=== PATIENT | female | born 1970 | race Hispanic/Latino ===

== ENCOUNTER → 2024-04-09 | Outpatient (CLI) | payer OTHER ==
[2024-04-09 16:18] LABS: BASOPHILS # (AUTO) 0.04 K/uL (0.00-0.20); BASOPHILS % (AUTO) 0.8 % (0.0-5.0); EOSINOPHILS # (AUTO) 0.17 K/uL (0.00-0.70); EOSINOPHILS % (AUTO) 3.4 % (0.0-8.0); HEMATOCRIT 39.2 % (36-48); IMMATURE GRANULOCYTE ABSOLUTE 0.01 K/uL (0-1); LYMPHOCYTES # (AUTO) 1.8 K/uL (1.0-4.8); LYMPHOCYTES % (AUTO) 35.5 % (21.0-51.0); MEAN CORPUSCULAR HEMOGLOBIN 29.5 pg (27.0-33.0); MEAN CORPUSCULAR HGB CONC 32.4 g/dL (32.0-36.0); MONOCYTES # (AUTO) 0.4 K/uL (0.1-1.0); MONOCYTES % (AUTO) 8.4 % (3.0-13.0); NEUTROPHILS # (AUTO) 2.6 K/uL (1.8-7.7); NEUTROPHILS % (AUTO) 51.7 % (40.0-77.0); PLATELET COUNT (AUTO) 197 K/uL (130-400); RED BLOOD CELL COUNT(AUTO) 4.31 MIL/uL (4.00-5.50); RED CELL DISTRIBUTION WIDTH 12.6 % (11.0-15.5)
[2024-04-09 16:49] LABS: CREATININE 0.8 mg/dL (0.5-1.0); POTASSIUM 3.6 mmol/L (3.5-5.1); THYROID STIMULATING HORMONE 0.61 uIU/mL (0.36-3.74)
== END | disposition home or self-care (01) ==
LOC: LAB 13:19
PROVIDERS: ATTEND Internal Medicine Cardiovascular Disease
DX: I87.2 Venous insufficiency (chronic) (peripheral) (principal); I73.9 Peripheral vascular disease, unspecified
CPT/HCPCS: 36415; 80048; 80061; 84443; 85025

== ENCOUNTER → 2024-05-19 | Outpatient (CLI) | payer OTHER | END | disposition home or self-care (01) | LOC: SHCH 10:08 | PROVIDERS: ATTEND Internal Medicine Cardiovascular Disease | DX: I87.2 Venous insufficiency (chronic) (peripheral) (principal); I73.9 Peripheral vascular disease, unspecified | CPT/HCPCS: 93925; 93970 ==

== ENCOUNTER 2025-01-20 12:37 | Emergency (ER) | payer OTHER ==
[~2025-01-20] VITALS: Ht 167.6 cm; Wt 81.6 kg
[2025-01-20 13:28] LABS: BASOPHILS # (AUTO) 0.03 K/uL (0.00-0.20); BASOPHILS % (AUTO) 0.4 % (0.0-5.0); EOSINOPHILS # (AUTO) 0.07 K/uL (0.00-0.70); EOSINOPHILS % (AUTO) 0.8 % (0.0-8.0); HEMATOCRIT 37.1 % (36-48); IMMATURE GRANULOCYTE ABSOLUTE 0.03 K/uL (0-1); LYMPHOCYTES # (AUTO) 2.1 K/uL (1.0-4.8); LYMPHOCYTES % (AUTO) 24.8 % (21.0-51.0); MEAN CORPUSCULAR HEMOGLOBIN 29.4 pg (27.0-33.0); MEAN CORPUSCULAR HGB CONC 32.9 g/dL (32.0-36.0); MEAN CORPUSCULAR VOLUME 89.4 fL (79-99); MONOCYTES # (AUTO) 0.5 K/uL (0.1-1.0); NEUTROPHILS # (AUTO) 5.8 K/uL (1.8-7.7); NEUTROPHILS % (AUTO) 67.6 % (40.0-77.0); PLATELET COUNT (AUTO) 190 K/uL (130-400); RED BLOOD CELL COUNT(AUTO) 4.15 MIL/uL (4.00-5.50); RED CELL DISTRIBUTION WIDTH 12.5 % (11.0-15.5); WHITE BLOOD COUNT (AUTO) 8.6 K/uL (4.8-10.8)
[2025-01-20 13:39] LABS: CREATININE 0.8 mg/dL (0.5-1.0); POTASSIUM 3.3 mmol/L (3.5-5.1)
--- NOTE | 2025-01-20 13:47 | HMCIMG ---
ULTRASOUND SOFT TISSUE LOWER EXTREMITY LEFT INDICATION: Left inguinal pain and swelling. COMPARISON: None TECHNIQUE: Multiplanar sonographic images of the left groin were obtained earlier in real-time using grayscale and color Doppler technique, and subsequently made available for review. FINDINGS/IMPRESSION: 5.4 x 3.6 x 4.8 cm and 4.2 x 1.2 x 5.8 cm nonvascular complex fluid collections demonstrated along the left groin suggesting residual hematomas.
--- NOTE | 2025-01-20 14:00 | ERN ---
General Chief Complaint: Other Problems Stated Complaint: POSSIBLE INTERNAL BLEEDING Time Seen by MD: 12:39 Source: patient History of Present Illness Initial Comments Patient is a 54-year-old female coming in to be evaluated for left inguinal pain. Patient states that she had a recent catheterization but is having some discomfort and noticed some mild swelling in the inguinal area. Allergies: Coded Allergies: No Known Drug Allergies (Unverified Allergy, Unknown, 01/20/25) Past Medical History Past Medical History: Heart Disease Medical History Other: THYROID PROBLEM Past Surgical History: Other Surgical History Other: STENT ROS Dictation CONSTITUTIONAL: No chills, no fever, no weakness, no diaphoresis, no malaise. HEAD/FACE: No signs of trauma. EENT: No eye pain, no blurred vision, no tearing, no double vision, no ear pain, no ear discharge, no nose pain, no nasal congestion, no throat pain, no throat swelling, no mouth pain. RESPIRATORY: No cough, no orthopnea, no SOB, no stridor, no wheezing. CARDIOVASCULAR: No chest pain, no edema, no palpitations, no syncope. GASTROINTESTINAL/ABDOMINAL: No abdominal pain, no constipation, no diarrhea, no nausea, no vomiting. GENITOURINARY: No abnormal discharge, no dysuria, no frequent urination, no hematuria. No complaints of pain in the genitals. MUSCULOSKELETAL: No back pain, no gout, no joint pain, no joint swelling, no muscle pain, no muscle stiffness, no neck pain. INTEGUMENTARY: No change in color, no change in hair/nails, no dryness, no lesion, no lumps, no rash. NEUROLOGICAL/PSYCH: No anxiety, not depressed, no emotional problem, no headache, no numbness, no pre-existing deficit, no history of seizures, no tremors, no weakness. HEMATOLOGIC/LYMPHATIC: Not anemic, no history of blood clots, no apparent bleeding, no bruising, glands not swollen. All Systems Negative, Except as Noted. Physical Exam Physical Exam Dictation VITAL SIGNS: Reviewed. GENERAL APPEARANCE: Alert, oriented x3, no acute distress, obese. HEAD AND FACE: Non-traumatic. EYES: PERRL, pink conjunctivas, eyelid no trauma, anterior chamber clear. EARS: Pinnas intact and no signs of trauma or erythema. Ear canals clear and no discharge. TMs no erythema. NOSE: No discharge, no bleeding. OROPHARYNX: Mouth normal, teeth no caries, tongue pink. Pharynx clear, no erythema. Tonsils no exudates, no abscesses noted. Mucous membrane moist. NECK: Supple, non-tender, no thyromegaly, no masses, no JVD, no bruits. BREAST: Deferred. CHEST: No tenderness, no crepitus, no paradoxical movement, no retractions. LUNGS: Clear, well-ventilated, symmetric, no rales, no wheezing, no rhonchi, no stridor, good breath sounds bilaterally. HEART: Regular rate, regular rhythm, no murmur, no gallops. VASCULAR: No peripheral edema. ABDOMEN: Soft, positive bowel sounds, nondistended, no guarding, nontender, no rebound, no masses no hepatomegaly, no splenomegaly, no Marti's sign, no hernias. RECTAL: Deferred. GENITAL: Deferred. NEUROLOGICAL: Normal speech, gross motor function intact, gross sensory function intact. MUSCULOSKELETAL: Neck nontender, full range of motion, back nontender, full range of motion. EXTREMITIES: Nontender, full range of motion. SKIN: Color pink, dry, no turgor, no rash, no lacerations, no abrasions, no contusions. LYMPHATICS: Deferred. Results Laboratory and Microbiology Lab and Micro Result Laboratory Tests Test 01/20/25 13:01 White Blood Count 8.6 K/uL (4.8-10.8) Red Blood Count 4.15 MIL/uL (4.00-5.50) Hemoglobin 12.2 g/dL (12.0-16.0) Hematocrit 37.1 % (36-48) Mean Corpuscular Volume 89.4 fL (79-99) Mean Corpuscular Hemoglobin 29.4 pg (27.0-33.0) Mean Corpuscular Hemoglobin Concent 32.9 g/dL (32.0-36.0) Red Cell Distribution Width 12.5 % (11.0-15.5) Platelet Count 190 K/uL (130-400) Mean Platelet Volume 10.6 fL (7.5-10.5) H Immature Granulocyte % (Auto) 0.4 % (0-1) Neutrophils (%) (Auto) 67.6 % (40.0-77.0) Lymphocytes (%) (Auto) 24.8 % (21.0-51.0) Monocytes (%) (Auto) 6.0 % (3.0-13.0) Eosinophils (%) (Auto) 0.8 % (0.0-8.0) Basophils (%) (Auto) 0.4 % (0.0-5.0) Neutrophils # (Auto) 5.8 K/uL (1.8-7.7) Lymphocytes # (Auto) 2.1 K/uL (1.0-4.8) Monocytes # (Auto) 0.5 K/uL (0.1-1.0) Eosinophils # (Auto) 0.07 K/uL (0.00-0.70) Basophils # (Auto) 0.03 K/uL (0.00-0.20) Absolute Immature Granulocyte (auto 0.03 K/uL (0-1) Nucleated Red Blood Cells 0.0 % (0.0-0.19) Sodium Level 139 mmol/L (136-145) Potassium Level 3.3 mmol/L (3.5-5.1) L Chloride Level 104 mmol/L (101-111) Carbon Dioxide Level 30 mmol/L (21-32) Blood Urea Nitrogen 13 mg/dL (7-18) Creatinine 0.8 mg/dL (0.5-1.0) Glomerular Filtration Rate Calc 86 mL/min (>90) Random Glucose 90 mg/dL (70-105) Total Calcium 8.6 mg/dL (8.5-10.1) Labs Reviewed?: Yes EKG/XRAY/US/CT/MRI Ultrasound Comment [place] [id number] [address] IMAGING REPORT Signed PATIENT: KAREY SCHREIBER MR#: [id number] : 1970 SEX: F AGE: 54 LOCATION: [facility] ORDER 48 STATUS: REG ER REPORT#: [id number] SERVICE [id number] REASON: left ingiunal pain/ swelling ORDERING PHYSICIAN: CHAPARRITA NAZARIO MD PROCEDURE: SOFT LOW E - US SOFT TISSUE LOWER EXTREMITY ULTRASOUND SOFT TISSUE LOWER EXTREMITY LEFT INDICATION: Left inguinal pain and swelling. COMPARISON: None TECHNIQUE: Multiplanar sonographic images of the left groin were obtained earlier in real-time using grayscale and color Doppler technique, and subsequently made available for review. FINDINGS/IMPRESSION: 5.4 x 3.6 x 4.8 cm and 4.2 x 1.2 x 5.8 cm nonvascular complex fluid collections demonstrated along the left groin suggesting residual hematomas. DICTATED BY: BONILLA RESENDIZ MD DATE: 01/20/25 1343 ELECTRONICALLY SIGNED BY: OBNILLA RESENDIZ MD DATE: 01/20/25 1347 MDM MDM: Differential diagnosis: Wound evaluation, surgical evaluation, status post catheterization, Patient is a 54-year-old female coming in to be evaluated for left inguinal discomfort. Per patient she was recently seen by Dr. Cardenas for a procedure that was performed. Ultrasound was performed findings were discussed with Dr. Cardenas operations intern and his recommendation is patient is to be discharged and follow up accordingly. ED Course Orders Procedure Category Date Status Time Us Soft Tissue Lower US 01/20/25 Resulted Extremity 12:48 Cbc With Differential LAB 01/20/25 Complete 12:51 Basic Metabolic Panel LAB 01/20/25 Complete 12:51 Morphine 2mg Syg PHA 01/20/25 Complete (Morphine 2mg Syg) 15:00 Ondansetron 4mg Inj PHA 01/20/25 Complete (Zofran 4mg Inj) 15:00 Current Medications Medications (Trade) Dose Ordered Sig/Minna Route PRN Reason Start Time Stop Time Status Last Admin Dose Admin Morphine Sulfate (morPHINE 2MG SYG) 2 mg ONCE ONCE IVP 01/20/25 15:00 01/20/25 15:01 DC 01/20/25 14:51 Ondansetron HCl (zoFRAN 4MG INJ) 4 mg ONCE ONCE IVP 01/20/25 15:00 01/20/25 15:01 DC 01/20/25 14:51 Vital Signs Date Time Temp Pulse Resp B/P (MAP) Pulse Ox O2 Delivery O2 Flow Rate FiO2 01/20/25 14:03 93 18 152/93 98 Room Air* 0 21 01/20/25 12:46 98.8 77 16 132/70 100 Room Air DX & DISP Disposition: Discharge Departure Impression: Primary Impression: Visit for wound check Condition: Stable Additional Instructions: FOLLOW-UP WITH PRIMARY CARE PROVIDER IN 1 TO 2 DAYS. TAKE MEDICATIONS DIRECTED HERE IN THE EMERGENCY ROOM. OKAY TO CONTINUE HOME MEDICATIONS UNLESS OTHERWISE DISCUSSED DURING YOUR VISIT IN THE EMERGENCY ROOM TODAY. RETURN TO YOUR NEAREST EMERGENCY ROOM IF SYMPTOMS WORSEN OR IF THERE IS NO IMPROVEMENT. CALL 911 IF YOU NEED IMMEDIATE ASSISTANCE. TAKE TYLENOL [id number] NEEDED AND IF NO CONTRAINDICATIONS ARE PRESENT. INCREASE ORAL HYDRATION. A WOUND CULTURE OR URINE CULTURE WAS ORDERED HERE IN THE EMERGENCY ROOM DEPARTMENT PLEASE FOLLOW-UP WITH PRIMARY CARE PROVIDER AND ADVISE THEM TO GET REPEAT PORTS FROM OUR FACILITY. IF YOU HAD ANY ZORAIDA WRAP/SPLINTS THAT WERE APPLIED HERE, PLEASE DO NOT REMOVE THEM UNTIL YOU SEE YOUR PRIMARY CARE OR SPECIALTY. Referrals: Referrals: BECKA HYDE MD (PCP) Time of Disposition: 15:04 CHAPARRITA NAZARIO MD Jan 20, 2025 14:00
[2025-01-20] MEDS: ondanSETRON 4MG INJ IVP ONE (14:51)
[2025-01-20] MEDS: morPHINE 2 MG SYG IVP ONE (14:51)
--- NOTE | 2025-01-20 15:40 | NUR ---
PT STATES SHE WAS SPOKEN TO BY HEART CLINIC MANAGER MEDIA AND WAS ADVISED THAT DR. GOODMAN WILL BE COMING TO EVALUATE HER GROIN BEFORE SHE CAN GO HOME. DR. NAZARIO WAS ADVISED THAT PT WAS TOLD TO WAIT IN ED FOR DR. GOODMAN BEFORE DISCHARGE.
[2025-01-20 19:00] VITALS: BP 119/66; PULSE 80; RESP 18; TEMP 98.2; O2SAT 100
== END 2025-01-20 19:15 | disposition home or self-care (01) ==
LOC: EDH 12:37
DX: Z48.00 Encounter for change or removal of nonsurgical wound dressing (principal)
CPT/HCPCS: 99285; 96374; 96375; 80048; 85025; 36415; 76882; J2270; J2405

== ENCOUNTER → 2025-02-06 | Outpatient (CLI) | payer OTHER ==
[2025-02-06 13:24] LABS: BASOPHILS # (AUTO) 0.05 K/uL (0.00-0.20); BASOPHILS % (AUTO) 0.9 % (0.0-5.0); EOSINOPHILS # (AUTO) 0.18 K/uL (0.00-0.70); EOSINOPHILS % (AUTO) 3.3 % (0.0-8.0); HEMATOCRIT 37.5 % (36-48); IMMATURE GRANULOCYTE ABSOLUTE 0.02 K/uL (0-1); LYMPHOCYTES # (AUTO) 1.7 K/uL (1.0-4.8); LYMPHOCYTES % (AUTO) 31.5 % (21.0-51.0); MEAN CORPUSCULAR HEMOGLOBIN 30.3 pg (27.0-33.0); MEAN CORPUSCULAR HGB CONC 32.5 g/dL (32.0-36.0); MEAN CORPUSCULAR VOLUME 93.3 fL (79-99); MONOCYTES # (AUTO) 0.5 K/uL (0.1-1.0); MONOCYTES % (AUTO) 8.5 % (3.0-13.0); NEUTROPHILS % (AUTO) 55.4 % (40.0-77.0); PLATELET COUNT (AUTO) 240 K/uL (130-400); RED BLOOD CELL COUNT(AUTO) 4.02 MIL/uL (4.00-5.50); RED CELL DISTRIBUTION WIDTH 13.7 % (11.0-15.5); WHITE BLOOD COUNT (AUTO) 5.4 K/uL (4.8-10.8)
--- NOTE | 2025-02-06 14:38 | HMCIMG ---
ULTRASOUND SOFT TISSUE GROIN INDICATION: Left groin pain COMPARISON: None TECHNIQUE: Multiplanar sonographic images of the left groin were obtained earlier in real-time using grayscale and color Doppler technique, and subsequently made available for review. FINDINGS/IMPRESSION: 8.7 x 2.5 x 5.5 cm and smaller 6.3 x 1.7 x 2.3 cm left groin hematomas, increased in size when compared to the 01/20/2025 study, when they measured 5.4 x 3.6 x 4.8 cm and 4.2 x 1.2 x 5.8 cm, respectively.
== END | disposition home or self-care (01) ==
LOC: RAH 12:53
PROVIDERS: ATTEND Internal Medicine Cardiovascular Disease
DX: M79.81 Nontraumatic hematoma of soft tissue (principal); R10.30 Lower abdominal pain, unspecified
CPT/HCPCS: 36415; 76882; 85025

== ENCOUNTER → 2025-09-25 | Outpatient (CLI) | payer OTHER ==
[~2025-09-25] MED LIST: GADOTERATE MEGLUMINE 10 MMOL/20 ML VIAL IV ONE
--- NOTE | 2025-09-26 17:29 | HMCIMG ---
EXAM: MR Abdomen without and with IV contrast. CLINICAL HISTORY: Abnormal findings on diagnostic imaging of liver and biliary tract. TECHNIQUE: Multisequence, multiplanar magnetic resonance images of the abdomen without and with intravenous contrast. CONTRAST: Without and with. COMPARISON: None provided. FINDINGS: LOWER THORAX: No pleural effusion. LIVER: The liver measures 21 cm with mild hepatomegaly. There is a focal lesion in the segment KARTHIK measuring 8 x 7 mm, appearing hyperintense on T2, hypointense on T1 (series 4, image 27/41). No diffusion restriction in the lesion. Post-contrast, there is peripheral interrupted nodular enhancement in the arterial phase images with progressive centripetal filling in and the lesion becoming hyperenhancing in the delayed images. No washout. There is no intrahepatic biliary ductal dilatation. GALLBLADDER AND BILE DUCTS: The gallbladder is surgically absent. The common bile duct measures 8 mm with abrupt caliber transition in the periampullary region without mass or calculus. PANCREAS: There are 2 tiny 4 and 3 mm sized T2 hyper and T1 hypointense lesions in the distal body and tail regions of the pancreas without diffusion restriction. There is no obvious communication with the pancreatic duct. No abnormal post-contrast enhancement in the pancreatic cystic lesions. There is no pancreatic ductal dilatation. SPLEEN: The spleen measures 12.2 cm. There is a 4 mm sized T2 hyper, T1 hypointense lesion in the spleen, which may represent cyst/pseudocyst, series 802, image 50/112. ADRENALS: The both adrenals are unremarkable. KIDNEYS: There are bilateral renal cysts, the largest at the inferior pole of the left kidney measuring 2.4 x 2 cm appearing hyperintense on T2, hypointense on T1. No abnormal post-contrast enhancement in the bilateral renal cysts. No hydronephrosis or mass. STOMACH AND BOWEL: A small sized hiatal hernia is present. No obstruction. LYMPH NODES: No lymphadenopathy. VASCULATURE: No abdominal aortic aneurysm. IMPRESSION: 1. Mild hepatomegaly with a focal lesion in segment KARTHIK of the liver measuring 8 x 7 mm, demonstrating peripheral interrupted nodular enhancement with progressive centripetal filling and no washout, without diffusion restriction. This is likely to be benign lesion, suggestive of hemangioma. No features of malignancy. 2. Mild biliary ductal prominence, likely physiological in post-cholecystectomy state. No ductal stones. 3. Bosniak class I bilateral simple renal cysts. No hydronephrosis. 4. Small hiatal hernia. /Kempner
== END | disposition home or self-care (01) ==
LOC: RAH 07:56
PROVIDERS: ATTEND Internal Medicine Gastroenterology
DX: N28.1 Cyst of kidney, acquired (principal); K44.9 Diaphragmatic hernia without obstruction or gangrene; K76.9 Liver disease, unspecified; R93.2 Abnormal findings on diagnostic imaging of liver and biliary tract; Z90.49 Acquired absence of other specified parts of digestive tract
CPT/HCPCS: 74183; A9575